=== PATIENT | female | born 1980 | race Caucasian/White ===

== ENCOUNTER → 2021-06-06 11:25 | Outpatient (CLI) | payer OTHER, SELFPAY ==
--- NOTE | ~2021-06-06 | US_ITS ---
EXAMINATION: US OB transvaginal DATE: 06/06/2021 11:52 INDICATION: Uncertain dates. TECHNIQUE: Real-time transvaginal pelvic ultrasound was performed. COMPARISON: None. FINDINGS: The uterus measures 11.9 x 7.3 x 7.9 cm. There is an intrauterine gestational sac. A yolk sac is iden tified. The crown rump length measures 2.6 cm, which correlates with an estimated gestational age of 9 weeks and 2 day(s) (+/-) 6 day(s). heart motion is identified measuring 178 beats per minute (bpm) by M-mode Doppler. The ovaries are not visualized. There is no free fluid in the pelvis. IMPRESSION: 1. Single living intrauterine gestation with estimated date of delivery of 01/07/2022. Reviewed, dictated and finalized at location A. IMPRESSION: 1. Single living intrauterine gestation with estimated date of delivery of .
== END ==
PROVIDERS: Visit Provider Obstetrics & Gynecology Gynecology
DX: Z36.87 Encounter for antenatal screening for uncertain dates (principal); Z3A.00 Weeks of gestation of pregnancy not specified
CPT/HCPCS: 76817

== ENCOUNTER 2021-12-28 02:24 | Inpatient (IN) | payer OTHER, SELFPAY ==
[2021-12-28] VITALS (61 sets, daily range): BP systolic 103–134; BP diastolic 57–87; PULSE 51–90; RESP 16; TEMP 36.6–36.8; O2SAT 93–100; BMI 29.2
[2021-12-28] MEDS: LACTATED RINGERS 1,000 ML 125 ML IV CONT ×2 (02:50→03:40)
--- NOTE | 2021-12-28 02:57 | LDADM ---
This patient, Yojana Rodriguez, was admitted to Labor/Delivery/Recovery 106 on 12/28/21 at 02:24. Plans for labor, pain management and were discussed with patient. Patient/family oriented to hospital policies and general routines including ID bracelet, bed and alarms, visiting hours, pain management, procedures, bathroom and other care routines, personal items, smoking policy, room service/diet and guest tray routines, infant security routines, and visiting hours. Patient/Family are encouraged to report perceived risks to care and to ask questions if they do not understand what they are told or what they should do. See OBIX for further documentation.
[2021-12-28 03:01] LABS: Basophils Percent Auto 0.2 % (0.2-1.2); Eosinophils Percent Auto 0.7 % (0-4.4); Hematocrit 38.8 % (37.0-47.0); Hemoglobin 12.5 g/dL (12.0-15.0); Immature Granulocyte Absolute 0.02 K/mm3 (0.00-0.031); Immature Granulocyte Percent A 0.4 % (0-0.5); Lymphocytes Absolute Auto 2.06 K/mm3 (0.9-3.2); Lymphocytes Percent Auto 36.5 % (18.3-44.2); Mean Corpuscular HGB Conc 32.2 g/dl (32-36); Mean Corpuscular Hemoglobin 27.9 pg (26-34); Mean Corpuscular Volume 86.6 fl (80-100); Mean Platelet Volume 9.1 fl (7.4-10.4); Monocytes Absolute Auto 0.5 K/mm3 (0.1-0.6); Monocytes Percent Auto 9.2 % (2.6-8.5); Platelet Count Result 235 k/mm3 (150-375); Red Blood Count 4.48 M/mm3 (4.2-5.4); Red Cell Distribution Width 13.7 % (11.5-14.5); White Blood Count 5.7 K/mm3 (4.5-10.0)
--- NOTE | 2021-12-28 03:14 | P.PNAN_ITS ---
Anes - Eval Pre Procedure Procedure: labor epidural Date/Time: 12/28/21 03:14 Pre Op Diagnosis: labor Patient Data Age: 41 Gender: F Height: 1.68 m Weight: 82 kg Last Vital Signs Pulse 60 12/28/21 03:01 BP 118/71 12/28/21 03:01 O2 Del Method Room Air 12/28/21 02:56 Allergies Allergy/AdvReac Type Severity Reaction Status Date / Time No Known Allergies Allergy Unknown Unverified 11/20/08 15:14 Home Medications Medication Instructions Recorded Confirmed Type aspirin 81 mg tablet 81 mg PO DAILY 12/09/21 12/09/21 History prenat.vits,itzel,kck-zsyi-fjetc 1 tablet PO DAILY 12/09/21 12/09/21 History sertraline 100 mg tablet (Zoloft) 100 mg PO DAILY 12/09/21 12/09/21 History Laboratory Tests 12/28/21 12/28/21 12/28/21 02:52 02:52 02:52 WBC 5.7 K/mm3 K/mm3 (4.5-10.0) RBC 4.48 M/mm3 M/mm3 (4.2-5.4) Hgb 12.5 g/dL g/dL (12.0-15.0) Hct 38.8 % % (37.0-47.0) MCV 86.6 fl fl (80-100) MCH 27.9 pg pg (26-34) MCHC 32.2 g/dl g/dl (32-36) RDW 13.7 % % (11.5-14.5) Plt Count 235 k/mm3 k/mm3 (150-375) MPV 9.1 fl fl (7.4-10.4) Immature Gran % (Auto) 0.4 % % (0-0.5) Neut % (Auto) 53.0 % % (45.5-73.1) Lymph % (Auto) 36.5 % % (18.3-44.2) [place] % (Auto) 9.2 % H % (2.6-8.5) Eos % (Auto) 0.7 % % (0-4.4) Baso % (Auto) 0.2 % % (0.2-1.2) Lymph # (Auto) 2.06 K/mm3 K/mm3 (0.9-3.2) [place] # (Auto) 0.5 K/mm3 K/mm3 (0.1-0.6) Eos # (Auto) 0.0 K/mm3 K/mm3 (0-0.3) Baso # (Auto) 0.0 K/mm3 K/mm3 (0.0-0.1) Abs Immat Gran (auto) 0.02 K/mm3 K/mm3 (0.00-0.031) Absolute Neuts (auto) 3.0 K/mm3 K/mm3 (1.3-6.7) Absolute Nucleated RBC 0.0 K/mm3 K/mm3 (0.0-0.012) Nucleated RBC % 0.0 % % (0.0-0.2) RPR Pending HIV 1&2 Ab/P24 Ag 4thGn Pending Patient hx anesthesia problems: none Family hx anesthesia problems: none Results Review: All pre-operative results and documents have been reviewed as part of the pre- operative evaluation. [facility] Family History Family History Mother Diabetes mellitus Father Heart disease Social History Social History Smoking status: Never smoker Substance use: never Spiritual care concerns: No Exam Day of Procedure 12/28/21 03:14 Patient weight: overweight Heart: regular rate and rhythm Lungs: clear to auscultation Airway: Mallampati scale Neurological: alert and oriented
[2021-12-28 03:53] LABS: HIV 1/2 Ab P24 Ag Result Negative (Negative)
[2021-12-28 04:04] LABS: Glucose Point of Care 91 mg/dl (65-105)
[2021-12-28] MEDS: OXYTOCIN 30 UNITS/NS 500 ML 30 UNITS/500 ML BAG 999 UNITS IV CONT (04:30)
--- NOTE | 2021-12-28 04:36 | WPDOBADMIT ---
Obstetrics - Admit Note Admission Note: record reviewed. No pertinent additions to the history and/or any subsequent changes in the physical findings that are not consistent with the expected course of the were found. Additions to the history and/or subsequent changes in the physical findings follow. Here with IUP 38 5/7 wks with SROM in active labor.
--- NOTE | 2021-12-28 04:37 | PM.OBPRVD ---
OB - Delivery Note Procedure Delivery date: 12/28/21 Procedure: Events: Gestational Diabetes (diet controlled) Induction method: None Delivery monitor: External FHT and External Uterine Route of delivery: Laceration Description: Perineal - 1st Degree Delivery repair: vicryl (3-0) Specimen: Yes (placenta) Quantitative Blood Loss (ml): 250 Anesthesia type: Epidural Disposition: Floor Baby Date of : 12/28/21 Weeks of gestation at delivery: 38 Infant gender: Female presentation: vertex position: Right Occiput Anterior Placenta delivery description: Spontaneous Cord Vessel Description: 3 Vessels Narrative: Infant received CPAP starting at 4 min. No weight yet or Apgars given.
--- NOTE | 2021-12-28 04:38 | PM.OBDSVD ---
DS: Admitting Diagnosis Discharge Date 12/30/21 Admitting Diagnosis IUP 38 5/7 wks with SROM in labor GDMA1 DS: Discharge Diagnosis Discharge Diagnosis (1) (normal spontaneous vaginal delivery): Code(s): O80 - Encounter for full-term uncomplicated delivery Status: Acute (2) GDM, class A1: Code(s): O24.410 - Gestational diabetes mellitus in , diet controlled Status: Acute OB - DS: Summary OB Procedures : Ultrasound OB Procedures Intrapartum: Spontaneous Vag Delivery OB Procedures: : None Peripartum Data Infant Delivery Method: Natural Vaginal Laceration Description: Perineal - 1st Degree complications: none Status at Discharge Functional status at discharge: independent ambulation Overall status at discharge: patient is progressing back to baseline Time Spent with Patient Time attestation: Total time spent providing and/or coordinating discharge services: DS: Data Data Completed and Pending Labs on day of discharge: Labs from last 24 hours 12/28/21 12/28/21 12/28/21 03:48 02:52 02:52 WBC RBC Hgb Hct MCV MCH MCHC RDW Plt Count MPV Immature Gran % (Auto) Neut % (Auto) Lymph % (Auto) Ness % (Auto) Eos % (Auto) Baso % (Auto) Lymph # (Auto) Ness # (Auto) Eos # (Auto) Baso # (Auto) Abs Immat Gran (auto) Absolute Neuts (auto) Absolute Nucleated RBC Nucleated RBC % POC Capillary Glucose 91 RPR HIV 1&2 Ab/P24 Ag 4thGn Negative Blood Type A Positive Antibody Screen Negative 12/28/21 12/28/21 02:52 02:52 WBC 5.7 RBC 4.48 Hgb 12.5 Hct 38.8 MCV 86.6 MCH 27.9 MCHC 32.2 RDW 13.7 Plt Count 235 MPV 9.1 Immature Gran % (Auto) 0.4 Neut % (Auto) 53.0 Lymph % (Auto) 36.5 Ness % (Auto) 9.2 H Eos % (Auto) 0.7 Baso % (Auto) 0.2 Lymph # (Auto) 2.06 Ness # (Auto) 0.5 Eos # (Auto) 0.0 Baso # (Auto) 0.0 Abs Immat Gran (auto) 0.02 Absolute Neuts (auto) 3.0 Absolute Nucleated RBC 0.0 Nucleated RBC % 0.0 POC Capillary Glucose RPR Pending HIV 1&2 Ab/P24 Ag 4thGn Blood Type Antibody Screen Discharge Plan Discharge Attending physician on discharge: Christine Lazaro Discharging Clinician: Christine Lazaro Anticipated Discharge Date/Time: 12/30/21 04:40 Patient Disposition: Home, Self-Care Activity: may shower and pelvic rest Diet: regular Patient Instructions: Antibiotic Form Stand Alone Forms: General Discharge Information Follow-up/Referrals: Christine Lazaro MD [Physician] - 6 Weeks Discharge Medications: Continued sertraline [Zoloft] 100 mg Tablet 100 mg PO DAILY #2 Tablet 1 tablet PO DAILY Discontinued Adult Low Dose Aspirin 81 mg Tablet 81 mg PO DAILY Date of admission: 12/28/21 02:24 Primary Care Provider: UNKNOWN,DOCTOR Admitting Provider: Christine Lazaro Attending physician on admission: Christine Lazaro Condition: Stable
[2021-12-28] MEDS: OXYTOCIN 30 UNITS/NS 500 ML 30 UNITS/500 ML BAG 125 UNITS IV CONT (06:37)
[2021-12-28] MEDS: BENZOCAINE 20% AER SPR (*SP) 56 GM CAN 1 SPRAY TOPICAL (08:00)
[2021-12-28] MEDS: WITCH HAZEL 40 PADS 1 PAD TOPICAL (08:00)
[2021-12-28] MEDS: LANOLIN (LANSINOH) 7.5 GM CREAM 1 APPLIC TOPICAL (08:00)
[2021-12-28] MEDS: IBUPROFEN 600 MG TABLET PO ×3 (08:00→22:21)
[2021-12-28] MEDS: SERTRALINE HCL 50 MG TABLET 100 MG PO (08:00)
[2021-12-28] MEDS: DOCUSATE SODIUM 100 MG CAPSULE PO (08:00)
[2021-12-28] MEDS: MULTIVIT/MIN/PREN/FOL AC/IRON TABLET 1 TAB PO (08:00)
[2021-12-28] MEDS: ACETAMINOPHEN 325 MG TABLET 650 MG PO (19:35)
[2021-12-29] MEDS: IBUPROFEN 600 MG TABLET PO (04:30)
[2021-12-29 04:39] LABS: Hematocrit 34.5 % (37.0-47.0); Hemoglobin 10.7 g/dL (12.0-15.0)
[2021-12-29] MEDS: ACETAMINOPHEN 325 MG TABLET 650 MG PO (09:35)
[2021-12-29] MEDS: SERTRALINE HCL 50 MG TABLET 100 MG PO (09:35)
[2021-12-29] MEDS: MULTIVIT/MIN/PREN/FOL AC/IRON TABLET 1 TAB PO (09:36)
[2021-12-29] MEDS: DOCUSATE SODIUM 100 MG CAPSULE PO (09:36)
--- NOTE | 2021-12-29 09:41 | PM.OBPNVD ---
OB - PN: Subj Subjective Date/time seen: 12/29/21 09:41 Patient comments: no complaints and pain well controlled baby status: doing well OB - PN: Obj Data Labs CBC & Chem 7: 12/29/21 04:33 Labs: Laboratory Results - last 24 hr 12/29/21 04:33 Hgb 10.7 L Hct 34.5 L OB - PN A/P Plan day: 1 Plan: routine care, discharge home, follow up 6 weeks and other (plans condoms until IUD) Time Spent With Patient Time: Total time spent is greater than 50% in coordination of care (as documented) at patient's floor/unit and/or counseling patient: Exam : Bimanual exam- vagina & uterus: other (Uterus firm, nt @U)
--- NOTE | 2021-12-29 10:11 | WPDANLDPN2 ---
Anes-Prog Note L&D Date/Time: 12/29/21 10:11 Comfortable throughout: labor and delivery Neuraxial method: epidural Epidural/Spinal procedure site: clean & non-tender Neuro status: Neuro function grossly intact. Cardiovascular status: normal Respiratory status: normal Airway patency: baseline Mental status: baseline Post-Op hydration status: normal Vital Signs: Last Vital Signs Temp 98.3 F 12/28/21 19:30 Pulse 65 12/28/21 19:30 Resp 16 12/28/21 19:30 BP 109/68 12/28/21 19:30 Pulse Ox 100 12/28/21 16:30 O2 Del Method Room Air 12/28/21 16:30 Pain score (VAS): 0 I/O: Intake & Output 12/28/21 12/29/21 12/29/21 23:59 07:59 15:59 Intake Total 1000 500 Balance 1000 500 Post-procedural complaints: none Patient feedback: Patient satisfied with anesthetic care.Pt states received comfort on one side only. Unable to obtain bilateral relief despite boluses and position change. pt further states she made too fast of change to have epidural replaced
[2021-12-30 09:11] LABS: Rapid Plasma Reagin Non-Reactive (NonReactive)
[2021-12-31 10:55] VITALS: BP 107/72; PULSE 65; RESP 16; TEMP 37.1; O2SAT 99
== END 2021-12-29 16:00 | disposition home or self-care (01) | DRG 807 ==
LOC: ANHLDR 04:41 → ANHOB2 07:46
PROVIDERS: Admitting Provider Obstetrics & Gynecology Gynecology; Visit Provider Obstetrics & Gynecology Gynecology
DX: O24.420 Gestational diabetes mellitus in childbirth, diet controlled (principal); Z37.0 Single live birth; O70.0 First degree perineal laceration during delivery; O62.3 Precipitate labor; Z3A.38 38 weeks gestation of pregnancy
CPT/HCPCS: 36415; 82948; 84112; 85014; 85018; 85025; 86592; 86703; 86850; 86900; 86901; 88307; A9270; G0432; J2590; J2795; J7120